=== PATIENT | male | born 1960 | race Caucasian/White ===

== ENCOUNTER 2017-09-09 10:49 | Day surgery (SDC) | payer MEDICARE, MEDICAID ==
[~2017-09-09] VITALS: Ht 177.8 cm; Wt 75.0 kg
[~2017-09-09 10:49] MED LIST: BUPR75TA12 PO; CLON-527 PO; DARU800T PO; DIVA500T2 PO; DOCU100C41 PO; EMTR1TAB12 PO; KRIL1CAP29 PO; METH-402 PO; RALT400T PO; RITO100C2 PO; ROSU10TA PO; TRINTELLIX PO; VALA500T37 PO; [UNRECOGNIZED DRUG - OTHER] PO
[2017-09-09 11:00] VITALS: BP 124/84
[2017-09-09] MEDS ORDERED: LIDOcaine Viscous 15ml cup ONE (11:12)
[2017-09-09] MEDS ORDERED: fentaNYL/PF 50MCG/1 ML 2ML syringe ONE ×2 (11:12→12:24)
[2017-09-09] MEDS ORDERED: MIDAZolam 5mg/5ml vial ONE (11:12)
[2017-09-09] MEDS ORDERED: BUPR150T8 PO (11:24)
[2017-09-09] MEDS ORDERED: EMTR1TAB12 PO (11:24)
[2017-09-09] MEDS ORDERED: DIVA500T2 PO (11:24)
[2017-09-09 12:45] VITALS: BP 120/71
[2017-09-09 12:55] VITALS: BP 119/75
[2017-09-09 13:05] VITALS: BP 118/72
[2017-09-09 13:15] VITALS: BP 114/72
[2017-09-09 13:25] VITALS: BP 120/71
== END 2017-09-09 13:45 | disposition home or self-care (01) ==
LOC: GI LAB 10:49
PROVIDERS: ATTEND Internal Medicine Gastroenterology
DX: K52.89 Other specified noninfective gastroenteritis and colitis (principal); K52.9 Noninfective gastroenteritis and colitis, unspecified; K29.80 Duodenitis without bleeding; K29.50 Unspecified chronic gastritis without bleeding; E78.5 Hyperlipidemia, unspecified; F32.9 Major depressive disorder, single episode, unspecified; F41.9 Anxiety disorder, unspecified; Z88.1 Allergy status to other antibiotic agents; Z88.2 Allergy status to sulfonamides; Z91.018 Allergy to other foods; Z91.011 Allergy to milk products; Z91.010 Allergy to peanuts; Z88.8 Allergy status to other drugs, medicaments and biological substances; Z79.899 Other long term (current) drug therapy; Z91.048 Other nonmedicinal substance allergy status
CPT/HCPCS: 43239; 45380; 99153; G0500; J2250; J3010; J7030; A4620